=== PATIENT | male | born 1975 | race Caucasian/White ===

== ENCOUNTER 2022-04-28 14:07 | Emergency (ER) | payer BC ==
[2022-04-28 15:35] LABS: ESTIMATED GFR 93 mL/min (>60)
== END 2022-04-28 16:15 | disposition home or self-care (01) ==
LOC: JD.ED 14:07
DX: R42 Dizziness and giddiness (principal); E78.5 Hyperlipidemia, unspecified
CPT/HCPCS: 36415; 80053; 83735; 84484; 85025; 93005; 93010; 99283; 99284